=== PATIENT | male | born 1965 | race Caucasian/White ===

== ENCOUNTER 2021-08-12 15:31 | Inpatient (IN) | payer MEDICAID, OTHER ==
[~2021-08-12] VITALS: Ht 188 cm; Wt 82.3 kg
[~2021-08-12 15:31] MED LIST: ALBU90AE INH; APIX5TAB MT; ATOR40TA70 MT; CEPH500C2 MT; COR3 PO; FOLI-43 MT; GABA-532 MT; LISI10TA26 MT; SERT-112 MT; THIA100T72 MT
[2021-08-12] MEDS ORDERED: MORPHINE SULFATE 4 MG/ML CPJ (NOT FOR IM USE) IV STA (16:17)
[2021-08-12] MEDS: LIDOCAINE 5% PATCH TOP SCH (16:30)
[2021-08-12] MEDS ORDERED: ACETAMINOPHEN 325MG TABLET PO ONE (16:30)
[2021-08-12 16:45] LABS: BASOPHILS % 0.5 % (0.0-2.0); EOSINOPHILS % 0.4 % (0.0-5.0); HEMOGLOBIN. 14.6 g/dL (14.0-18.0); LYMPHOCYTES % 15.3 % (20.0-50.0); MEAN CORPUSCULAR HEMOGLOBIN 31.6 pg (28.0-32.0); MEAN PLATELET VOLUME 8.9 fl (7.4-10.4); MONOCYTES % 7.8 % (2.0-8.0); PLATELET 177 x1000/uL (130-400); RED BLOOD CELL COUNT 4.62 mill/uL (4.7-6.1); RED CELL DISTRIBUTION WIDTH 13.4 % (11.6-14.6)
[2021-08-12 16:51] LABS: CHLORIDE 107 mEq/L (98-107)
[2021-08-12 16:56] LABS: ETHANOL BLOOD < 10 mg/dL
[2021-08-12] MEDS ORDERED: FUROSEMIDE 20MG/2ML VIAL IVP ONE (18:45)
[2021-08-12] MEDS ORDERED: NITROGLYCERIN OINT 1GM/INCH UDPKT TD ONE (18:45)
[2021-08-12] MEDS ORDERED: MORPHINE SULFATE 2 MG/ML CPJ (NOT FOR IM USE) IV NR (19:00)
[2021-08-12] MEDS ORDERED: IOHEXOL-300 100 ML BOTTLE ONE (19:44)
[2021-08-12] MEDS ORDERED: CLONIDINE 0.1MG TABLET PO PRN (19:45)
[2021-08-12] MEDS ORDERED: ONDANSETRON HCL 4MG/2ML INJ IV PRN (19:45)
[2021-08-12] MEDS ORDERED: IPRATROPIUM/ALBUTEROL 0.5-3(2.5)MG/3ML NEB HHN PRN (19:45)
[2021-08-12] MEDS ORDERED: DIPHENHYDRAMINE 50MG/ML VIAL IV PRN (19:45)
[2021-08-12 22:27] LABS: *AMPHETAMINES SCREEN URINE NEGATIVE (NEGATIVE); *BARBITURATES SCREEN URINE NEGATIVE (NEGATIVE)
[2021-08-12 22:28] LABS: *BENZODIAZEPINES SCREEN URINE NEGATIVE (NEGATIVE); *COCAINE SCREEN URINE NEGATIVE (NEGATIVE); CANNABINOID URINE SCREEN NEGATIVE (NEGATIVE); METHADONE URINE SCREEN NEGATIVE (NEGATIVE); OPIATES URINE SCREEN PRESUMTIVE POSITIVE (NEGATIVE); PHENCYCLIDINE URINE SCREEN NEGATIVE (NEGATIVE)
[2021-08-13] VITALS (7 sets, daily range): BP systolic 94–125; BP diastolic 67–87
[2021-08-13] MEDS ORDERED: SPIR25TA6 PO (04:04)
[2021-08-13] MEDS ORDERED: BENA20TA10 PO (04:05)
[2021-08-13] MEDS ORDERED: METO200T48 PO (04:08)
[2021-08-13] MEDS ORDERED: CETI-89 PO (04:08)
[2021-08-13] MEDS ORDERED: VITA400T9 PO (04:08)
[2021-08-13] MEDS ORDERED: DIGO125T80 PO (04:08)
[2021-08-13] MEDS ORDERED: ASCO500C18 PO (04:08)
[2021-08-13] MEDS ORDERED: LEVE750T10 PO (04:08)
[2021-08-13] MEDS ORDERED: *PATIENT'S OWN MEDICATION STORAGE XX SCH (06:00)
[2021-08-13 08:22] LABS: BASOPHILS % 0.7 % (0.0-2.0); CHLORIDE 107 mEq/L (98-107); EOSINOPHILS % 1.9 % (0.0-5.0); HEMOGLOBIN. 13.5 g/dL (14.0-18.0); LYMPHOCYTES % 22.4 % (20.0-50.0); MEAN CORPUSCULAR HEMOGLOBIN 31.6 pg (28.0-32.0); MEAN CORPUSCULAR VOLUME 93.5 fL (80.0-94.0); MONOCYTES % 14.3 % (2.0-8.0); NEUTROPHILS % 60.7 % (40.0-76.0); PLATELET 132 x1000/uL (130-400); RED BLOOD CELL COUNT 4.28 mill/uL (4.7-6.1); RED CELL DISTRIBUTION WIDTH 13.2 % (11.6-14.6)
[2021-08-13 08:29] LABS: LDL CHOLESTEROL 45 mg/dL (5-100)
[2021-08-13 08:31] LABS: HDL CHOLESTEROL 46 mg/dL (40-59)
[2021-08-13] MEDS ORDERED: FUROSEMIDE 40MG/4ML VIAL IVP SCH (09:00)
[2021-08-13] MEDS: LIDOCAINE 5% PATCH TOP SCH (09:32)
[2021-08-13] MEDS: CARVEDILOL 3.125 MG TABLET PO SCH ×2 (11:30→21:12)
[2021-08-13] MEDS ORDERED: NALOXONE HCL 0.4MG/ML VIAL IV PRN (11:45)
[2021-08-13] MEDS: APIXABAN 5 MG TABLET PO SCH ×2 (12:24→21:12)
[2021-08-13] MEDS: MORPHINE SULFATE 2 MG/ML CPJ (NOT FOR IM USE) IV PRN ×2 (12:37→21:25)
[2021-08-13 19:00] LABS: CLARITY URINE CLEAR (CLEAR); COLOR URINE YELLOW (YELLOW); KETONES URINE NEGATIVE (NEGATIVE); LEUKOCYTE ESTERASE URINE NEGATIVE (NEGATIVE); NITRITE URINE NEGATIVE (NEGATIVE); OCCULT BLOOD URINE NEGATIVE (NEGATIVE); PH URINE 5.5 (4.5-8.0); PROTEIN URINE NEGATIVE (NEGATIVE); SPECIFIC GRAVITY URINE 1.015 (1.005-1.030); UROBILINOGEN URINE 0.2 E.U./dL (0.2-1.0)
[2021-08-14 00:26] VITALS: BP 114/79
[2021-08-14 04:00] VITALS: BP 112/71
[2021-08-14] MEDS: MORPHINE SULFATE 2 MG/ML CPJ (NOT FOR IM USE) IV PRN (06:17)
[2021-08-14 08:00] VITALS: BP 123/81
[2021-08-14 08:33] LABS: BASOPHILS % 0.7 % (0.0-2.0); EOSINOPHILS % 2.7 % (0.0-5.0); HEMATOCRIT. 39.9 % (42.0-52.0); HEMOGLOBIN. 13.6 g/dL (14.0-18.0); LYMPHOCYTES % 20.9 % (20.0-50.0); MEAN CORPUSCULAR HEMOGLOBIN 31.9 pg (28.0-32.0); MEAN CORPUSCULAR VOLUME 93.3 fL (80.0-94.0); MEAN PLATELET VOLUME 8.9 fl (7.4-10.4); MONOCYTES % 14.1 % (2.0-8.0); NEUTROPHILS % 61.6 % (40.0-76.0); PLATELET 128 x1000/uL (130-400); RED BLOOD CELL COUNT 4.27 mill/uL (4.7-6.1); RED CELL DISTRIBUTION WIDTH 12.9 % (11.6-14.6)
[2021-08-14 08:46] LABS: PHOSPHORUS 3.5 mg/dL (2.5-4.9)
[2021-08-14] MEDS: APIXABAN 5 MG TABLET PO SCH ×2 (09:58→20:50)
[2021-08-14] MEDS: CARVEDILOL 3.125 MG TABLET PO SCH ×2 (09:58→20:50)
[2021-08-14 12:00] VITALS: BP 101/60
[2021-08-14 16:00] VITALS: BP 104/69
[2021-08-14] MEDS: ACETAMINOPHEN 325MG TABLET PO PRN (18:59)
[2021-08-14 19:59] VITALS: BP 145/88
[2021-08-15] VITALS (7 sets, daily range): BP systolic 121–150; BP diastolic 78–108
[2021-08-15] MEDS: MORPHINE SULFATE 2 MG/ML CPJ (NOT FOR IM USE) IV PRN (07:56)
[2021-08-15 08:25] LABS: CHLORIDE 105 mEq/L (98-107)
[2021-08-15 08:31] LABS: BASOPHILS % 0.7 % (0.0-2.0); EOSINOPHILS % 2.3 % (0.0-5.0); MEAN CORPUSCULAR HEMOGLOBIN 31.5 pg (28.0-32.0); MEAN CORPUSCULAR VOLUME 92.6 fL (80.0-94.0); MEAN PLATELET VOLUME 9.3 fl (7.4-10.4); MONOCYTES % 12.8 % (2.0-8.0); NEUTROPHILS % 64.2 % (40.0-76.0); PLATELET 129 x1000/uL (130-400); RED BLOOD CELL COUNT 4.43 mill/uL (4.7-6.1); RED CELL DISTRIBUTION WIDTH 13.1 % (11.6-14.6)
[2021-08-15] MEDS: APIXABAN 5 MG TABLET PO SCH ×2 (09:21→20:38)
[2021-08-15] MEDS: CARVEDILOL 3.125 MG TABLET PO SCH ×2 (09:22→20:38)
[2021-08-15] MEDS ORDERED: NITROGLYCERIN 0.4MG TABLET SL SL PRN (15:15)
[2021-08-15] MEDS: ACETAMINOPHEN 325MG TABLET PO PRN (20:38)
[2021-08-16] VITALS (7 sets, daily range): BP systolic 114–152; BP diastolic 74–91
[2021-08-16 06:15] LABS: CHLORIDE 104 mEq/L (98-107)
[2021-08-16 06:19] LABS: PHOSPHORUS 3.7 mg/dL (2.5-4.9)
[2021-08-16 07:09] LABS: BASOPHILS % 0.9 % (0.0-2.0); EOSINOPHILS % 2.7 % (0.0-5.0); HEMOGLOBIN. 14.8 g/dL (14.0-18.0); LYMPHOCYTES % 23.4 % (20.0-50.0); MEAN CORPUSCULAR HEMOGLOBIN 31.4 pg (28.0-32.0); MEAN CORPUSCULAR VOLUME 93.2 fL (80.0-94.0); MEAN PLATELET VOLUME 9.5 fl (7.4-10.4); MONOCYTES % 12.9 % (2.0-8.0); NEUTROPHILS % 60.1 % (40.0-76.0); PLATELET 135 x1000/uL (130-400); RED BLOOD CELL COUNT 4.72 mill/uL (4.7-6.1)
[2021-08-16] MEDS: CARVEDILOL 3.125 MG TABLET PO SCH ×2 (08:38→21:07)
[2021-08-16] MEDS: APIXABAN 5 MG TABLET PO SCH ×2 (08:38→21:06)
[2021-08-16] MEDS: MORPHINE SULFATE 2 MG/ML CPJ (NOT FOR IM USE) IV PRN ×2 (08:39→18:22)
[2021-08-17] VITALS: BP 135/82
[2021-08-17 04:00] VITALS: BP 143/89
[2021-08-17 08:00] VITALS: BP 132/89
[2021-08-17 08:19] LABS: BASOPHILS % 0.9 % (0.0-2.0); EOSINOPHILS % 2.3 % (0.0-5.0); HEMATOCRIT. 41.8 % (42.0-52.0); HEMOGLOBIN. 14.3 g/dL (14.0-18.0); LYMPHOCYTES % 21.1 % (20.0-50.0); MEAN CORPUSCULAR HEMOGLOBIN 31.5 pg (28.0-32.0); MEAN CORPUSCULAR VOLUME 92.5 fL (80.0-94.0); MEAN PLATELET VOLUME 9.4 fl (7.4-10.4); MONOCYTES % 10.6 % (2.0-8.0); NEUTROPHILS % 65.1 % (40.0-76.0); PLATELET 148 x1000/uL (130-400); RED BLOOD CELL COUNT 4.52 mill/uL (4.7-6.1); RED CELL DISTRIBUTION WIDTH 12.9 % (11.6-14.6)
[2021-08-17] MEDS: APIXABAN 5 MG TABLET PO SCH ×2 (08:42→20:32)
[2021-08-17] MEDS: CARVEDILOL 3.125 MG TABLET PO SCH ×2 (08:42→20:32)
[2021-08-17] MEDS: MORPHINE SULFATE 2 MG/ML CPJ (NOT FOR IM USE) IV PRN (08:43)
[2021-08-17 12:00] VITALS: BP 133/79
[2021-08-17 13:39] LABS: CHLORIDE 104 mEq/L (98-107)
[2021-08-17 13:44] LABS: PHOSPHORUS 3.5 mg/dL (2.5-4.9)
[2021-08-17 16:00] VITALS: BP 127/54
[2021-08-17] MEDS ORDERED: SODIUM POLYSTYRENE SULFONATE 15 G/60 ML BOT PO SCH (16:00)
[2021-08-17] MEDS: ACETAMINOPHEN 325MG TABLET PO PRN (16:44)
[2021-08-17 20:00] VITALS: BP 131/79
[2021-08-18] VITALS: BP 145/84
[2021-08-18 04:00] VITALS: BP 147/81
[2021-08-18 08:00] VITALS: BP 136/81
[2021-08-18] MEDS: APIXABAN 5 MG TABLET PO SCH (08:49)
[2021-08-18] MEDS: ACETAMINOPHEN 325MG TABLET PO PRN (08:50)
[2021-08-18] MEDS: CARVEDILOL 3.125 MG TABLET PO SCH (08:50)
[2021-08-18] MEDS ORDERED: BISACODYL 10MG SUPP PR PRN (11:45)
[2021-08-18 12:00] VITALS: BP 129/80
[2021-08-18] MEDS ORDERED: POLYETHYLENE GLYCOL 3350 (17GM) 1 DOSE PACK PO SCH (12:00)
[2021-08-18 16:00] VITALS: BP 131/79
== END 2021-08-18 17:10 | disposition home or self-care (01) | DRG 48 ==
LOC: ER 15:31 → EDBEDREQTM 19:14 → EDBEDREQ 19:14 → ENRESERV 22:49 → 6WST 08-13 00:51
PROVIDERS: ADMIT Internal Medicine; ATTEND Internal Medicine
DX: G90.8 Other disorders of autonomic nervous system (principal); E44.0 Moderate protein-calorie malnutrition; I13.0 Hypertensive heart and chronic kidney disease with heart failure and stage 1 through stage 4 chronic kidney disease, or unspecified chronic kidney disease; I42.0 Dilated cardiomyopathy; N17.9 Acute kidney failure, unspecified; I50.9 Heart failure, unspecified; I95.9 Hypotension, unspecified; E86.1 Hypovolemia; E86.9 Volume depletion, unspecified; I48.20 Chronic atrial fibrillation, unspecified; E87.5 Hyperkalemia; I25.10 Atherosclerotic heart disease of native coronary artery without angina pectoris; F32.9 Major depressive disorder, single episode, unspecified; R07.89 Other chest pain; N18.9 Chronic kidney disease, unspecified; Z20.822 Contact with and (suspected) exposure to COVID-19; Z95.0 Presence of cardiac pacemaker; Z72.0 Tobacco use; Z82.49 Family history of ischemic heart disease and other diseases of the circulatory system; Z83.3 Family history of diabetes mellitus; Z86.74 Personal history of sudden cardiac arrest; I25.2 Old myocardial infarction; Z86.11 Personal history of tuberculosis; Z68.23 Body mass index [BMI] 23.0-23.9, adult; Z79.899 Other long term (current) drug therapy
CPT/HCPCS: 36415; 71045; 71250; 76770; 78582; 80048; 80053; 80061; 80305; 80320; 81003; 82550; 83735; 83880; 84100; 84132; 84484; 85025; 87426; 93005; 93306; 93880; 93970; 99285; A9558; J1940; J2270; Q9967; G0480